=== PATIENT | male | born 1970 | race Asian ===

== ENCOUNTER 2022-12-22 21:45 | Inpatient (IN) | payer BC ==
[~2022-12-22] VITALS: Ht 167.6 cm; Wt 74.0 kg
[2022-12-22] MEDS ORDERED: ONDANSETRON HCL 4MG/2ML INJ IV STA (22:37)
[2022-12-22] MEDS ORDERED: PANTOPRAZOLE SODIUM 40 MG/VIAL IV STA (22:37)
[2022-12-22 22:42] LABS: BASOPHILS % 0.3 % (0.0-2.0); EOSINOPHILS % 0.3 % (0.0-5.0); HEMATOCRIT. 36.1 % (42.0-52.0); LYMPHOCYTES % 8.9 % (20.0-50.0); MEAN CORPUSCULAR HEMOGLOBIN 29.7 pg (28.0-32.0); MEAN PLATELET VOLUME 7.8 fl (7.4-10.4); MONOCYTES % 3.9 % (2.0-8.0); NEUTROPHILS % 86.6 % (40.0-76.0); PLATELET 285 x1000/uL (130-400); RED BLOOD CELL COUNT 4.06 mill/uL (4.7-6.1); RED CELL DISTRIBUTION WIDTH 13.2 % (11.6-14.6)
[2022-12-22 22:45] LABS: CHLORIDE 107 mEq/L (98-107)
[2022-12-22] MEDS ORDERED: SODIUM CHLORIDE 0.9% 1,000 ML IV ONE (22:45)
[2022-12-22 22:49] LABS: INR 1.1; PROTHROMBIN TIME 11.7 sec (9.6-11.0)
[2022-12-22 22:54] LABS: ETHANOL BLOOD < 10 mg/dL
[2022-12-22] MEDS ORDERED: PANTOPRAZOLE SODIUM 40 MG/VIAL IV NR (23:30)
[2022-12-23 01:34] LABS: *AMPHETAMINES SCREEN URINE NEGATIVE (NEGATIVE); *BARBITURATES SCREEN URINE NEGATIVE (NEGATIVE); *BENZODIAZEPINES SCREEN URINE PRESUMTIVE POSITIVE (NEGATIVE); *COCAINE SCREEN URINE NEGATIVE (NEGATIVE); CANNABINOID URINE SCREEN NEGATIVE (NEGATIVE); METHADONE URINE SCREEN NEGATIVE (NEGATIVE); OPIATES URINE SCREEN NEGATIVE (NEGATIVE); PHENCYCLIDINE URINE SCREEN NEGATIVE (NEGATIVE)
[2022-12-23 03:21] LABS: HEMATOCRIT 29.3 % (42.0-52.0); MEAN CORPUSCULAR HEMOGLOBIN 30.2 pg (28.0-32.0); MEAN CORPUSCULAR VOLUME 88.8 fL (80.0-94.0); PLATELET 230 x1000/uL (130-400); RED BLOOD CELL COUNT 3.31 mill/uL (4.7-6.1)
[2022-12-23] MEDS ORDERED: IOHEXOL-300 100 ML BOTTLE ONE (03:36)
[2022-12-23 08:00] VITALS: BP 97/52
[2022-12-23 08:45] VITALS: BP 97/52
[2022-12-23 09:00] VITALS: BP 97/52
[2022-12-23] MEDS ORDERED: DOCUSATE SODIUM 100MG CAPSULE PO PRN (09:45)
[2022-12-23] MEDS ORDERED: HYDROCODONE/ACETAMINOPHEN 5/325MG TABLET PO PRN (09:45)
[2022-12-23] MEDS ORDERED: CLONIDINE 0.1MG TABLET PO PRN (09:45)
[2022-12-23] MEDS ORDERED: IPRATROPIUM/ALBUTEROL 0.5-3(2.5)MG/3ML NEB HHN PRN (09:45)
[2022-12-23] MEDS ORDERED: ONDANSETRON HCL 4MG/2ML INJ IV PRN (09:45)
[2022-12-23] MEDS ORDERED: ACETAMINOPHEN 325MG TABLET PO PRN ×2 (09:45)
[2022-12-23] MEDS ORDERED: LORAZEPAM 0.5MG TABLET PO PRN (09:45)
[2022-12-23] MEDS ORDERED: ALBUTEROL (0.083%) 2.5MG/3ML NEB HHN PRN (10:15)
[2022-12-23] MEDS ORDERED: IPRATROPIUM BROMIDE (0.02%) 0.5MG/2.5ML NEB HHN PRN (10:15)
[2022-12-23] MEDS ORDERED: DEXT 5%/LACTATED RINGERS 1,000 ML IV SCH (10:15)
[2022-12-23] MEDS: PANTOPRAZOLE SODIUM 40 MG/VIAL IV SCH ×2 (10:27→16:34)
[2022-12-23 11:32] LABS: HEMOGLOBIN 9.6 g/dL (14.0-18.0)
[2022-12-23 11:37] LABS: INR 1.1; PROTHROMBIN TIME 11.6 sec (9.6-11.0)
[2022-12-23 11:38] LABS: CHLORIDE 112 mEq/L (98-107)
[2022-12-23 12:00] VITALS: BP 84/48
[2022-12-23 12:17] LABS: TOTAL IRON BINDING CAPACITY 226 ug/dL (250-450)
[2022-12-23 12:50] LABS: FOLIC ACID (FOLATE) SERUM 18.2 ng/mL (>5.38)
[2022-12-23] MEDS ORDERED: LIDOCAINE HCL 1% 10 MG/ML 10ML VIAL ONE (13:41)
[2022-12-23] MEDS ORDERED: MIDAZOLAM HCL 2 MG/2 ML VIAL ONE (13:41)
[2022-12-23] MEDS ORDERED: PROPOFOL 200MG/20ML VIAL IV ONE ×2 (13:41→14:17)
[2022-12-23 16:00] VITALS: BP 103/53
[2022-12-23] MEDS ORDERED: SUCR1TAB30 PO (16:05)
[2022-12-23] MEDS ORDERED: PANT40TA51 MT (16:05)
[2022-12-23] MEDS ORDERED: SUCRALFATE 1 G/10 ML UDC PO SCH (16:40)
[2022-12-23 17:04] VITALS: BP 108/57
== END 2022-12-23 18:15 | disposition home or self-care (01) | DRG 369 ==
LOC: ER 22:10 → EDBEDREQ 12-23 00:24 → EDBEDREQTM 12-23 00:24 → 7EST 12-23 00:55 → EDBEDREQTM 12-23 01:29 → ENRESERV 12-23 08:09
PROVIDERS: ADMIT Internal Medicine; ATTEND Internal Medicine
PROC: 0DB78ZX Excision of Stomach, Pylorus, Via Natural or Artificial Opening Endoscopic, Diagnostic (ICD-10-PCS; principal; 2022-12-23)
DX: K22.6 Gastro-esophageal laceration-hemorrhage syndrome (principal); E87.0 Hyperosmolality and hypernatremia; E87.20 Acidosis, unspecified; K29.71 Gastritis, unspecified, with bleeding; D64.9 Anemia, unspecified; D72.829 Elevated white blood cell count, unspecified; K44.9 Diaphragmatic hernia without obstruction or gangrene; E86.9 Volume depletion, unspecified; R79.89 Other specified abnormal findings of blood chemistry; I95.9 Hypotension, unspecified; Z88.0 Allergy status to penicillin
CPT/HCPCS: 36415; 74177; 80048; 80053; 80305; 80320; 82607; 82728; 82746; 83540; 83550; 83605; 85014; 85018; 85025; 85027; 85044; 86850; 86900; 87426; 88305; 93005; 99285; C9113; J2250; J2405; J2704; J3490; J7030; J7121; Q9967; G0480